=== PATIENT | female | born 1990 | race Caucasian/White ===

== ENCOUNTER 2017-07-09 10:45 | Emergency (ER) | payer OTHER ==
[~2017-07-09] VITALS: Ht 165.1 cm; Wt 72.7 kg
[2017-07-09 10:56] VITALS: BP 125/69
[2017-07-09] MEDS ORDERED: PREN-155 PO (11:10)
[2017-07-09] MEDS ORDERED: IBUP-2070 PO (11:10)
[2017-07-09] MEDS ORDERED: LIDOCAINE HCL 1% 10 ML VIAL INJ ONE (11:15)
[2017-07-09] MEDS ORDERED: IBUPROFEN 600 MG TABLET PO ONE (11:15)
[2017-07-09] MEDS ORDERED: CIPROFLOXACIN HCL 250 MG TABLET PO ONE (11:15)
[2017-07-09] MEDS ORDERED: PERTUSS(ACELL),DIPH,TET VAC/PF 0.5 ML VIAL IM ONE (11:15)
== END 2017-07-09 11:45 | disposition home or self-care (01) ==
LOC: EMS 10:47
DX: S41.151A Open bite of right upper arm, initial encounter (principal); J45.909 Unspecified asthma, uncomplicated; W54.0XXA Bitten by dog, initial encounter; Y93.89 Activity, other specified; Y92.89 Other specified places as the place of occurrence of the external cause; Y99.8 Other external cause status
CPT/HCPCS: 12002; 90471; 90715; 99283; J3490